=== PATIENT | male | born 2000 | race Hispanic/Latino ===

== ENCOUNTER 2024-11-22 18:32 | Emergency (ER) | payer OTHER, SELFPAY ==
[2024-11-22 18:43] VITALS: BP 140/93; PULSE 90; RESP 16; TEMP 36.8; O2SAT 100
--- NOTE | 2024-11-22 19:04 | ED_ITS ---
HPI - Nausea/Vomiting/Diarrhea General Chief complaint: Nausea/Vomiting/Diarrhea Stated complaint: UPPER ABD PAIN Time Seen by Provider: 11/22/24 18:35 Source: patient and RN notes reviewed Mode of arrival: ambulatory Limitations: no limitations History of Present Illness HPI Narrative: 19-year-old male Presents to Express Care complaining of nausea, vomiting, diarrhea for approximately 5 days. Patient reports epigastric/left upper abdominal pain. Patient states the pain is below his left pec and primarily in his left upper quadrant of his abdomen. Patient says symptoms started as nausea along with watery brown stools. Patient denies any fevers, body aches, chills. Patient said he vomited once this morning. Patient has been able to keep fluids down since vomiting. Patient denies any blood or mucus in stools. Patient recently got a risankizumab injection 4 days ago is wondering if it exacerbated his symptoms, however is symptoms started prior to injection. Patient takes his injection for psoriasis. Patient denies recent travel outside the country. Patient describes the abdominal pain as a fullness. Patient denies any chest pain, chest pressure, chest pain with exertion, difficulty breathing, shortness of breath, vomiting blood, or any other symptoms. Patient has a history of anxiety use to take BuSpar set taken 1 year ago is wondering if his symptoms are related to his anxiety. Related Data Home Medications ?Medication ?Instructions ?Recorded ?Confirmed ?Last Taken ?Type buspirone 10 mg tablet 10 mg PO BID PRN 07/15/24 07/15/24 Unknown History triamcinolone topical 07/15/24 07/15/24 Unknown History Allergies Allergy/AdvReac Type Severity Reaction Status Date / Time No Known Allergies Allergy Unverified 07/15/24 09:56 Review of Systems Review of Systems: CONSTITUTIONAL: Denies fever, chills, body aches, or sweats. EYES: Denies visual changes, redness, or discharge. ENT: Denies rhinorrhea, congestion, sore throat, or otalgia. CARDIOVASCULAR: Denies chest pain, chest pressure, chest pain with exertion, dizziness, palpitations, loss of consciousness, or edema. RESPIRATORY: Denies cough, difficulty breathing, or dyspnea. GASTROINTESTINAL: Denies bloody stools, hematochezia. Positive for nausea, vomiting, dyspepsia, abdominal pain, or diarrhea. GENITOURINARY: Denies dysuria or hematuria. SKIN: Denies rash or itching. MUSCULOSKELETAL: Denies back pain, joint pain, or myalgia. NEUROLOGIC: Denies headache, numbness, or weakness. PSYCHIATRIC: Denies anxiety or depression. All other systems reviewed are negative, except as documented in HPI. [facility] Past Medical History Medical History Anxiety Surgical History Surgical History History of surgical removal of pilonidal cyst Family History Family History Father Diabetes mellitus Sibling Depression Social History Social History Smoking status: Never smoker Alcohol intake: never Substance use: never Do You Feel Safe in your Home?: Yes Lack of Transportation: No Lack of Food: Never True Current Housing: I Have Housing Concerned About Future Housing: No Difficulty Paying Gas/Electric Bills: No Difficulty Paying for Meds: No Currently Unemployed: No Education: Bachelor's Degree Difficulty w/ Childcare or Family Care: No Living arrangements: with roommate(s) Occupation/Education: occupation Gender identity (if verbalized by the patient): Male Spiritual care concerns: No Agree to blood products: Yes Exam Narrative: GENERAL: This is a well-nourished, well-developed adult, in no apparent distress. They are non ill-appearing, nontoxic appearing. Patient is anxious appearing but is calmed with reassurance. HEAD: normocephalic, atraumatic. EYES: Sclera clear/white. Vision is grossly intact. Conjunctiva normal bilaterally. Extraocular movements intact. EARS: External ears normal, Hearing grossly intact. NOSE: External nose normal THROAT: Mucous membranes moist NECK: Normal range of motion CARDIOVASCULAR: Regular rate and rhythm. Normal S1-S2. No clicks, gallops, rubs, or murmurs. RESPIRATORY: Respiratory rate normal, respiratory effort nonlabored, no respiratory distress. Normal respiratory exam GASTROINTESTINAL: Abdomen large, soft, flat, non-tender, nondistended. Bowel sounds are active. No hepato-splenomegaly, or palpable masses. No guarding or rigidity. No rebound tenderness. SKIN: warm, Dry, intact with no suspicious lesions or rash, good texture and turgor. NEURO: awake, alert, and oriented to person, place and time. There were no obvious focal neurologic abnormalities. EXTREMITIES: No joint tenderness, effusion, or edema noted. BACK: Nontender without deformity. No CVA tenderness. Course Course Emergency Course: Portions of this record may have been created with voice recognition software Level of Care: Express Care Visit Vital Signs Vital signs: Vital Signs Temperature 98.3 F 11/22/24 18:43 Pulse Rate 90 11/22/24 18:43 Respiratory Rate 16 11/22/24 18:43 Blood Pressure 140/93 H 11/22/24 18:43 Pulse Oximetry 100 11/22/24 18:43 Temperature 98.3 F 11/22/24 18:43 Pulse Rate 90 11/22/24 18:43 Respiratory Rate 16 11/22/24 18:43 Blood Pressure 140/93 H 11/22/24 18:43 Pulse Oximetry 100 11/22/24 18:43 MDM - Nausea/Vomiting/Diarrhea MDM Narrative Medical decision making narrative: Symptoms likely from a viral gastroenteritis. No peritoneal findings on exam. No TTP to abdomen. Patient may also have acid reflux. Will Prescribe famotidine, and will prescribe Zofran as needed for nausea and vomiting. Patient does not appear clinically dehydrated. Patient has been able to keep fluids down. Offered patient a ER transfer for further evaluation management of his symptoms the patient declined. Patient states he will have close follow-up with PCP. Discussed physical exam findings. Advised supportive measures and signs/symptoms to go to the ER. Pt is appropriate for outpt treatment and f/u. Differential Diagnosis Differential diagnosis: Likely traveler's diarrhea, food poisoning, gastroenteritis and other (Anxiety, somatic disorder, irritable bowel syndrome, acid reflux disease, indigestion) Discharge Plan Discharge Clinical Impression: Gastroenteritis Patient Disposition: Home Condition: Stable Instructions: Gastroenteritis (ED) Additional Instructions: It is likely have a viral gastroenteritis. This is normally a self-limiting condition or resolve within 12-60 hours. However sometimes symptoms may linger on up to 7 days. It is recommended not to take anything for the diarrhea and allow the diarrhea to run its course. If the diarrhea persist and you're feeling better, you may take Pepto-Bismol as needed to help control the diarrhea. Recommend hydration with plenty of fluids electrolyte supplementation such as Pedialyte. Follow-up PCP in 3-5 days. You may take Zofran as needed for nausea or vomiting. Please take Pepcid as directed. If Youre unable to keep anything down, you developed worsening abdominal pain, chest pains, breathing problems, fevers, uncontrollable diarrhea, concerns of dehydration, or any other concerns please go to the ER immediately. Patient Language: Korean Prescriptions: New famotidine [Acid Controller] 20 mg tablet 20 mg PO BID 14 Days Qty: 28 0RF ondansetron 4 mg tablet,disintegrating 4 mg PO Q8H PRN (Reason: nausea and vomiting) Qty: 12 0RF No Action buspirone 10 mg tablet 10 mg PO BID PRN triamcinolone topical Follow-up/Referrals: Brittany Gonzalez APRN [Primary Care Provider] - Time of Disposition: 19:01
== END 2024-11-22 19:07 | disposition home or self-care (01) ==
PROVIDERS: PCP Nurse Practitioner Family
DX: K52.9 Noninfective gastroenteritis and colitis, unspecified (principal); F41.9 Anxiety disorder, unspecified
CPT/HCPCS: 99213; G0463